=== PATIENT | male | born 1965 | race Caucasian/White ===

== ENCOUNTER 2021-10-05 13:02 | Emergency (ER) | payer MEDICARE ==
--- NOTE | 2021-10-05 13:42 | XRAY ---
Indication: Pain following injury. Comparison: None 3 views left hand demonstrates nondisplaced corner fracture base 1st metacarpal, radial aspect. Elsewhere osteopenia, mild degenerative changes all IP joints, and tiny soft tissue foreign body adjacent 1st metacarpal.
[2021-10-05 14:13] VITALS: BP 128/80; O2SAT 98
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
[2021-10-05] MEDS ORDERED: TYLENOL 325 MG PO STA (14:47)
[2021-10-05] MEDS ORDERED: TYLENOL 325 MG ONE (14:48)
--- NOTE | 2021-10-05 14:53 | XRAY ---
Indication: Neck stiffness following head injury. Multiple contiguous axial images obtained through the head without contrast. Comparison: None Normal appearing brain parenchyma, ventricles, and bony calvarium. Visualized paranasal sinuses and mastoid air cells are clear. Impression: Normal CT head without contrast exam.
--- NOTE | 2021-10-05 14:57 | XRAY ---
Indication: Neck stiffness following head injury. Multiple contiguous axial images obtained through the cervical spine. Sagittal and coronal reformatted images obtained. 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 Axial images negative for acute fracture, suspicious bony lesions, or spinal canal stenosis. Mild/moderate C3-C7 degenerative endplate spurring. Also mild/moderate multilevel bilateral degenerative facet hypertrophy. Sagittal and coronal reformatted images demonstrates normal alignment. Mild C3-C7 disc space narrowing. No acute compression fracture, subluxation, or jumped facet. Normal appearing craniocervical junction. Patient is edentulous. Visualized noncontrasted soft tissues including lung apices are unremarkable. Impression: Multilevel degenerative changes. Negative for acute fracture/subluxation.
[2021-10-05 15:05] VITALS: PULSE 72
== END 2021-10-05 15:36 | disposition home or self-care (01) ==
LOC: ED 13:02
DX: S62.232A Other displaced fracture of base of first metacarpal bone, left hand, initial encounter for closed fracture (principal); M54.2 Cervicalgia; W20.8XXA Other cause of strike by thrown, projected or falling object, initial encounter; Y92.007 Garden or yard of unspecified non-institutional (private) residence as the place of occurrence of the external cause; M79.642 Pain in left hand; Z72.0 Tobacco use; Z28.310 Unvaccinated for COVID-19
CPT/HCPCS: 29130; 70450; 72125; 73130; 99284; A9270-GY